=== PATIENT | female | born 2005 | race Caucasian/White ===

== ENCOUNTER 2024-04-16 01:07 | Emergency (ER) | payer MEDICAID ==
[~2024-04-16] VITALS: Ht 154.9 cm; Wt 49.9 kg
[2024-04-16 01:40] VITALS: BP 127/79; PULSE 63; RESP 16; TEMP 97.5; O2SAT 96
[2024-04-16] MEDS ORDERED: CARB15DR61 RIGHT EAR (10:39)
== END 2024-04-16 03:50 | disposition left against medical advice (07) ==
LOC: MED 01:07
DX: H92.02 Otalgia, left ear (principal); Z53.21 Procedure and treatment not carried out due to patient leaving prior to being seen by health care provider

== ENCOUNTER 2024-04-16 09:34 | Emergency (ER) | payer MEDICAID ==
[~2024-04-16] VITALS: Ht 154.9 cm; Wt 49.9 kg
[2024-04-16 09:38] VITALS: BP 149/86; PULSE 62; RESP 22; TEMP 98.7; O2SAT 98
[2024-04-16 09:50] VITALS: O2SAT 98
[2024-04-16] MEDS ORDERED: CARB15DR61 RIGHT EAR (10:39)
== END 2024-04-16 10:46 | disposition home or self-care (01) ==
LOC: MED 09:34
DX: H61.23 Impacted cerumen, bilateral (principal); R88.0 Cloudy (hemodialysis) (peritoneal) dialysis effluent
CPT/HCPCS: 69210; 99284